=== PATIENT | male | born 1935 | race Caucasian/White ===

== ENCOUNTER 2019-04-04 17:19 | Emergency (ER) | payer OTHER ==
[~2019-04-04] VITALS: Ht 180.3 cm; Wt 90.0 kg
[2019-04-04 17:53] LABS: BASOPHILS # (AUTO) 0.06 x10^3/uL (0-0.1); BASOPHILS % (AUTO) 1 % (0-1); EOSINOPHILS # (AUTO) 0.12 x10^3/uL (0-0.4); EOSINOPHILS % (AUTO) 2 % (1-7); LYMPHOCYTES # (AUTO) 1.24 x10^3/uL (1-3.4); LYMPHOCYTES % (AUTO) 23 % (22-44); MD NO; MEAN CORPUSCULAR HEMOGLOBIN 32.8 pg (27.5-34.5); MEAN CORPUSCULAR HGB CONC 32.8 g/dL (33.2-36.2); MEAN CORPUSCULAR VOLUME 99.8 fL (81-97); MEAN PLATELET VOLUME 10.4 fL (7.4-10.4); MONOCYTES # (AUTO) 0.46 x10^3/uL (0.2-0.8); MONOCYTES % (AUTO) 9 % (2-9); NEUTROPHILS # (AUTO) 3.55 x10^3/uL (1.8-6.8); NEUTROPHILS % (AUTO) 65 % (42-75); PLATELET COUNT 247 x10^3/uL (130-400); RED BLOOD COUNT 4.08 x10^6/uL (4.38-5.82); RED CELL DISTRIBUTION WIDTH 13.4 % (9.4-14.8)
[2019-04-04 18:03] LABS: INTERNATIONAL NORMALIZED RATIO 3.24 (0.93-1.1); PROTHROMBIN TIME 32.5 Seconds (9.6-11.5)
== END 2019-04-04 19:04 | disposition home or self-care (01) ==
LOC: ED 18:36
DX: R04.0 Epistaxis (principal)
CPT/HCPCS: 30901; 36415; 85025; 85610; 99284

== ENCOUNTER 2019-04-07 09:50 | Emergency (ER) | payer OTHER ==
[~2019-04-07] VITALS: Ht 180.3 cm; Wt 89.2 kg
--- NOTE | 2019-04-07 10:49 | NUR ---
PT. IS A & O X 4 WITH C/O WANTING TO HAVE HIS NASAL TAMPON REMOVED FROM HIS RIGHT NARE. PT. HAD THE TAMPON REMOVED. BLEEDING IS CONTROLLED. PT. HAS NO OTHER COMPLAINTS. PT. IS SITTING IN THE CHAIR AT THIS TIME.
[2019-04-07 11:13] VITALS: BP 119/76
--- NOTE | 2019-04-07 11:13 | NUR ---
No epistaxis, pt in NAD, VSS. Patient given discharge instructions and they have confirmed that they understand the instructions. Patient ambulatory with steady gait.
== END 2019-04-07 11:15 | disposition home or self-care (01) ==
LOC: ED 11:07
DX: Z48.00 Encounter for change or removal of nonsurgical wound dressing (principal); I48.91 Unspecified atrial fibrillation
CPT/HCPCS: 99281